=== PATIENT | female | born 1950 | race Asian ===

== ENCOUNTER 2019-07-06 21:14 | Emergency (ER) | payer OTHER ==
[~2019-07-06] VITALS: Ht 160 cm; Wt 70.5 kg
[2019-07-06 21:25] VITALS: Ht 160 cm; Wt 70.5 kg
[2019-07-07 00:01] VITALS: BP 142/76
== END 2019-07-07 00:01 | disposition home or self-care (01) ==
LOC: ED 21:14
DX: S30.0XXA Contusion of lower back and pelvis, initial encounter (principal); S09.8XXA Other specified injuries of head, initial encounter; L40.9 Psoriasis, unspecified; Z88.0 Allergy status to penicillin; W10.9XXA Fall (on) (from) unspecified stairs and steps, initial encounter; Y93.89 Activity, other specified; Y92.89 Other specified places as the place of occurrence of the external cause; Y99.8 Other external cause status